=== PATIENT | male | born 1975 | race Caucasian/White ===

== ENCOUNTER 2020-12-03 16:48 | Emergency (ER) | payer OTHER, MEDICAID, SELFPAY ==
[2020-12-03 16:52] VITALS: BP 132/90; PULSE 77; RESP 12; TEMP 36.9; O2SAT 100; BMI 26.6
--- NOTE | 2020-12-03 16:57 | DI.RAD.S_ITS ---
PROCEDURE: XR TIBIA FUBULA RT 2V INDICATIONS: HEAVY package dropped on leg, unable to bear weight TECHNIQUE: 2 views of the tibia and fibula were acquired. COMPARISON: None. FINDINGS: Bones: No fractures or dislocations. No suspicious bony lesions. Soft tissues: No suspicious soft tissue calcifications or masses. IMPRESSION: No acute lower leg fracture or dislocation. Dictated by: Arash Condon M.D. on 12/03/2020 at 17:22 Approved by: Arash Condon M.D. on 12/03/2020 at 17:22
--- NOTE | 2020-12-03 19:47 | ED_ITS ---
HPI - Extremity Injury (Lower) General Chief Complaint: Extremity Injury, Lower Stated Complaint: large object dropped on right knee, pain, cant wal Time Seen by Provider: 12/03/20 19:40 Source: patient Mode of arrival: Ambulatory History of Present Illness HPI Narrative: Patient complains of right proximal leg lateral pain. 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 and the employee lost control of the item and it struck upper proximal lateral right leg. No previous injury to this knee or leg before. Painful. No numbness tingling weakness or footdrop. Pain with weight bearing. No hip or ankle or foot injury. Pants removed. Related Data Allergies Allergy/AdvReac Type Severity Reaction Status Date / Time No Known Drug Allergies Allergy Unverified 12/03/20 16:57 Review of Systems Review of Systems Narrative: GENERAL: Denies chills, fatigue, malaise, fever, sweats. HEENT: Denies sinus pain, ear pain, sore throat RESPIRATORY: Denies dyspnea, cough CARDIOVASCULAR: Denies chest pain, palpitations GASTROINTESTINAL: Denies nausea, vomiting, abdominal pain : Denies dysuria, frequency, hematuria MUSCULOSKELETAL: Complaint muscle or bony pain SKIN: Denies rash, skin lesions NEUROLOGIC: Denies weakness, numbness ROS Unobtainable: All systems reviewed & are unremarkable except as noted in HPI and below Patient History Medical History Otitis externa Otitis media Social History Smoking Status: Never smoker Smoking Status: Never smoker alcohol intake frequency: a few times a month Substance Use Type: marijuana Exam Narrative Exam Narrative: GENERAL: in no distress, not toxic not dyspneic HEAD: Normocephalic. CARDIOVASCULAR: Regular rate and rhythm without murmurs RESPIRATORY: Clear to auscultation. Breath sounds equal bilaterally. No wheezes, rales, or rhonchi. EXTREMITIES: No gross deformities. Examination right lower extremity. Pants removed. Socks and shoes removed. Nontender ankle and hip. There is no direct bony tenderness swelling or erythema or skin injury. There is tenderness to the bony proximal fibula. No gross deformity. Able to fully flex and extend at the knee actively without difficulty. Able stand but has slight antalgic gait due to pain. There is no no footdrop. Light touch intact to foot and toes. Wiggles toes. Able to fully flex extend at the ankle and hip. No skin injury to the proximal right leg. NEURO: AOx4. SKIN: Warm and dry PSYCH: Not anxious, is cooperative Initial Vital Signs Initial Vital Signs: Vital Signs Temperature 98.5 F 12/03/20 16:52 Pulse Rate 77 12/03/20 16:52 Respiratory Rate 12 12/03/20 16:52 Blood Pressure 132/90 12/03/20 16:52 Pulse Oximetry 100 12/03/20 16:52 Course Course Course Narrative: No new issues during course of stay. Orders Ordered: ED Orders 12/03/20 16:57 XR tibia fibula RT 2V Stat Discontinued Medications Ibuprofen (Ibuprofen 400 Mg Tablet) 800 mg PO NOW ONE Stop: 12/03/20 19:47 Last Admin: 12/03/20 19:50 Dose: 800 mg Documented by: DANIS Reevaluation(s) Reevaluation #1: Reviewed with patient x-ray results. Likely contusion to the fibular head. No fracture seen. Follow-up given and he agrees with treatment plan with Marlon wrap crutches and [id number] ibuprofen. Vital Signs Vital signs: Vital Signs - 8 hr 12/03/20 20:00 Pulse Rate 68 Blood Pressure 125/75 Pulse Oximetry 100 MDM - Extremity Injury (Lower) Differential Diagnosis Differential diagnosis: Likely other (Contusion/strain/sprain/fracture) Imaging Data Extremity x-ray #1: Radiologist's Impression: [address] [id number] ReportSigned Patient: Jamie Hill GMR#: [id number]: 1975Acct:[id number]/Sex: 45 / MDate of Service: 12/03/20Loc: EDAccession Number: [id number] Procedure: XR tibia fibula RT 2V Ordering Provider: Sadiq Kong D.O. PROCEDURE: XR TIBIA FUBULA RT 2V INDICATIONS: HEAVY package dropped on leg, unable to bear weight TECHNIQUE: 2 views of the tibia and fibula were acquired. COMPARISON: None. FINDINGS: Bones: No fractures or dislocations. No suspicious bony lesions. Soft tissues: No suspicious soft tissue calcifications or masses. IMPRESSION: No acute lower leg fracture or dislocation. Dictated by: Arash Condon M.D. on 12/03/2020 at 17:22 Approved by: Arash Condon M.D. on 12/03/2020 at 17:22 [facility] Narrative Medical decision making narrative: Appropriate for discharge home. Neurovascularly intact. No footdrop. No fracture seen. Will give referral for Orthopedics for follow-up. Discharge Plan Departure Patient Disposition: Home Clinical Impression: Contusion of leg, right Qualifiers: Encounter type: initial encounter Qualified Code(s): S80.11XA - Contusion of right lower leg, initial encounter Instructions: DI for Contusion Activity Restrictions/Additional Instructions: Use Marlon wrap and crutches for walking until seen by orthopedic office. Call tomorrow for office time. May take [id number] Tylenol or ibuprofen for pain. May use cool packs 20 minutes at a time as needed to help the pain in the right leg. Referrals: Santos Russell MD [Primary Care Provider] - Josue Mejia MD [Physician] -
[2020-12-03] MEDS: IBUPROFEN 400 MG TABLET 800 MG PO (19:50)
[2020-12-03 20:00] VITALS: BP 125/75; PULSE 68; O2SAT 100
== END 2020-12-03 20:01 | disposition home or self-care (01) ==
PROVIDERS: Emergency Provider Emergency Medicine; PCP Family Medicine
DX: S80.11XA Contusion of right lower leg, initial encounter (principal); W22.8XXA Striking against or struck by other objects, initial encounter
CPT/HCPCS: 73590; 99283; 99284

== ENCOUNTER 2021-04-03 20:58 | Emergency (ER) | payer OTHER, MEDICAID, SELFPAY ==
[2021-04-03 21:03] VITALS: BP 122/87; PULSE 79; RESP 14; TEMP 36.6; O2SAT 97; BMI 26.6
[2021-04-03] MEDS: TET,DIPH,PERTUSS(ACELL),VAC/PF 0.5 ML SYRINGE IM (23:12)
[2021-04-04] MEDS: LIDO 1%/SOD BICARB 8.4% (10ML) 10 ML SYRINGE INJ (00:23)
--- NOTE | 2021-04-04 00:55 | ED_ITS ---
HPI - Wound/Laceration General Chief Complaint: Wound/Laceration Stated Complaint: LACERATION OF RIGHT SIDE OF LIP Time Seen by Provider: 04/03/21 23:11 Source: patient Mode of arrival: Ambulatory Limitations: no limitations History of Present Illness HPI narrative: 45-year-old male nonsmoker with noncontributory medical history presents with his in the chief complaint of a laceration to his upper lip suffered a few hours ago. His dog was excited and jumped up and accidentally scratched him on the upper lip. There was no bite and this is a provoked scenario. He is otherwise well and free of complaint. His tetanus will need to be updated. Related Data Previous Rx's Medication Instructions Recorded amoxicillin 875 mg-potassium 1 tab PO BID #20 tab 04/04/21 clavulanate 125 mg tablet (Augmentin) Allergies Allergy/AdvReac Type Severity Reaction Status Date / Time No Known Drug Allergies Allergy Unverified 12/03/20 16:57 Review of Systems Review of Systems Narrative: GENERAL: Denies chills, fatigue, malaise, fever, sweats. HEENT: Denies sinus pain, ear pain, sore throat, difficulty swallowing, dizziness. RESPIRATORY: Denies dyspnea, cough, wheezing, hemoptysis, sputum. CARDIOVASCULAR: Denies chest pain, palpitations, orthopnea, edema, GASTROINTESTINAL: Denies nausea, vomiting, abdominal pain, diarrhea, constipation, melena. : Denies dysuria, frequency, incontinence, hematuria, urinary retention. MUSCULOSKELETAL: denies weakness, joint pain, or bony pain SKIN: See HPI NEUROLOGIC: Denies weakness, headache, numbness, change in speech, confusion, seizures, incoordination. PSYCHIATRIC: No concerning psychosocial issues. 12 point review of systems is negative except for those stated above Patient History Medical History Otitis externa Otitis media Social History Smoking Status: Never smoker Smoking Status: Never smoker alcohol intake frequency: a few times a week Substance Use Type: marijuana Exam Narrative Exam Narrative: GEN: AOx3 and in mild distress EYES: Pupils are equal, round, and reactive to light and accommodation. Extraoccular muscles are intact bilaterally. There is no subconjunctival hemorrhage or exudate. CHEST: Lungs are clear to auscultation bilaterally and free of wheezes, rales, or rhonchi. Heart rate is regular rhythm, there are no murmurs, clicks, rubs, or gallops. There is no chest wall tenderness. ABD: Abdomen is soft and nontender. There is no guarding or rebound. Bowel sounds are normal in all 4 quadrants. There is no mass or organomegaly. EXT: Full painless ROM of all extremities with no loss of sensation or strength. SKIN: 1 cm laceration, vertically oriented, just lateral to the right side of the philtrum of upper lip, extending just to the edge of the vermilion border. This is not through and through, not gaping and no foreign bodies are noted. Warm, pink, and dry. No erythema or rash Initial Vital Signs Initial Vital Signs: Vital Signs Temperature 97.8 F 04/03/21 21:03 Pulse Rate 79 04/03/21 21:03 Respiratory Rate 14 04/03/21 21:03 Blood Pressure 122/87 04/03/21 21:03 Pulse Oximetry 97 04/03/21 21:03 Procedures Laceration Repair Laceration 1: Site: lip Side (If applicable): right Size (cm): 1.0 Description: linear Depth: simple, single layer Local Anesthetic: lidocaine 1% and with bicarb Amount of anesthesia used (mL): 3 Pre-repair: wound explored Skin layer closed with: nylon Size (cm): 6-0 Number of sutures: 2 Technique: simple, interrupted Course Orders Ordered: Discontinued Medications Diphtheria/Tetanus/Acell Pertussis (Tet,Diph,Pertuss(Acell),Vac/Pf 0.5 Ml Syringe) 0.5 ml IM .ONCE ONE Stop: 04/03/21 23:11 Last Admin: 04/03/21 23:12 Dose: 0.5 ml Documented by: ALYCIA Lidocaine/Sodium Bicarbonate (Lido 1%/Sod Bicarb 8.4% (10ml) 10 Ml Syringe) 10 ml INJ NOW ONE Stop: 04/04/21 00:15 Last Admin: 04/04/21 00:23 Dose: 10 ml Documented by: LAVON Vital Signs Vital signs: Vital Signs - 8 hr 04/04/21 01:03 04/04/21 01:14 Pulse Rate 95 H 80 Respiratory Rate 25 H 18 Blood Pressure 122/73 117/78 Pulse Oximetry 97 96 Discharge Plan Departure Patient Disposition: Home Clinical Impression: Complicated laceration of lip Qualifiers: Encounter type: initial encounter Qualified Code(s): S01.511A - Laceration without foreign body of lip, initial encounter Instructions: DI for Laceration Repair Activity Restrictions/Additional Instructions: Please keep the wound clean and dry to the best of your ability. Please monitor for signs of infection such as redness to the skin or increasing pain. Have the sutures removed by your doctor in about 7 days. If you are unable to get into your doctor, we would be happy to remove the sutures in that same timeframe Prescription for antibiotics was sent to [facility] at your request *If you do not have a primary care provider please contact the [facility] Resource line at [phone]. They will ask some questions about your medical history and help get you set up with a doctor in the community. *Return to Emergency Department if you should have any new, worsening or concerning symptoms, such as [fever greater than 101 F, shaking chills, wo rsening pain, persistent vomiting or other bothersome symptoms] . Prescriptions: New amoxicillin-pot clavulanate [Augmentin] 875-125 mg tablet 1 tab PO BID Qty: 20 RF: 0 Referrals: Santos Russell MD [Primary Care Provider] -
[2021-04-04 01:03] VITALS: BP 122/73; PULSE 95; RESP 25; O2SAT 97
[2021-04-04 01:14] VITALS: BP 117/78; PULSE 80; RESP 18; O2SAT 96
== END 2021-04-04 01:15 | disposition home or self-care (01) ==
PROVIDERS: Emergency Provider Emergency Medicine; PCP Family Medicine
DX: S01.511A Laceration without foreign body of lip, initial encounter (principal); Z23 Encounter for immunization
CPT/HCPCS: 12011; 90471; 99283; 90715

== ENCOUNTER → 2021-12-23 10:24 | Outpatient (CLI) | payer OTHER, MEDICAID, SELFPAY ==
[2021-12-23 10:46] LABS: Add Manual Diff / Slide Review NO; Basophils Absolute Auto 100 /uL (0-100); Basophils Percent Auto 1.4 % (0-2); Eosinophils Absolute Auto 200 /uL (0-450); Eosinophils Percent Auto 2.9 % (2-4); Hematocrit 45.2 % (41-53); Lymphocytes Absolute Auto 2100 /uL (1100-4500); Lymphocytes Percent Auto 34.5 % (25-40); Mean Corpuscular HGB Conc 35.5 % (30-36); Mean Corpuscular Hemoglobin 32.6 PG (26-34); Mean Corpuscular Volume 91.8 fL (80-100); Monocytes Absolute Auto 800 /uL (0-900); Monocytes Percent Auto 12.3 % (3-14); Neutrophils Absolute Auto 3000 /uL (1500-7000); Neutrophils Percent Auto 48.9 % (50-75); Platelet Count 306 X10^3/uL (150-400); Red Blood Cell Count 4.92 X10^6/uL (4.5-5.9); Red Cell Distribution Width 13.5 % (11.6-14.8); White Blood Cell Count 6.2 X10^3/uL (4.5-11.0)
[2021-12-23 11:03] LABS: Alanine Aminotransferase 82 IU/L (<50); Albumin 4.3 g/dL (3.5-5.0); Albumin Globulin Ratio 1.5 (1.0-2.8); Alkaline Phosphatase 58 U/L (38-126); Aspartate Aminotransferase 52 IU/L (17-59); BUN Creatinine Ratio 17.6 (6-22); Bilirubin Total 0.6 mg/dL (0.2-1.3); Bilirubin Unconjugated 0.6 mg/dL (0.0-1.1); Blood Urea Nitrogen 16 mg/dL (9-20); C-Reactive Protein Quant < 0.5 mg/dL (<1.0); Calcium 9.2 mg/dL (8.4-10.2); Carbon Dioxide 29 mmol/L (22-32); Chloride 103 mmol/L (98-107); Cholesterol 174 mg/dL (140-199); Estimated Glomerular Filt Rate > 60 mL/min (>60); Globulin 2.8 g/dL (1.7-4.1); Glucose 114 mg/dL (70-100); HDL Cholesterol 52 mg/dL (40-60); HEMOLYSIS < 15 (0-50); LDL Cholesterol Calculated 96 mg/dL (<100); Potassium 4.4 mmol/L (3.4-5.1); Sodium 141 mmol/L (137-145); Total Protein 7.1 g/dL (6.3-8.2); Triglycerides 131 mg/dL (35-150)
[2021-12-23 11:22] LABS: Erythrocyte Sedimentation Rate 3 MM/HR (0-15)
[2021-12-26 17:08] LABS: ANA Screen, IFA Positive (.)
== END ==
PROVIDERS: PCP Family Medicine; Referring Provider Family Medicine; Visit Provider Family Medicine
DX: R10.9 Unspecified abdominal pain (principal); R79.89 Other specified abnormal findings of blood chemistry; Z13.220 Encounter for screening for lipoid disorders; Z13.228 Encounter for screening for other metabolic disorders; R53.83 Other fatigue; Z13.29 Encounter for screening for other suspected endocrine disorder
CPT/HCPCS: 36415; 80053; 80061; 80076; 84443; 85025; 85651; 86038; 86140